=== PATIENT | male | born 1975 | race Caucasian/White ===

== ENCOUNTER 2019-08-13 08:16 | Observation (INO) ==
[2019-08-13] MEDS ORDERED: NITROGLYCERIN 0.4 MG/TAB BTL SL PRN (08:24)
[2019-08-13] MEDS ORDERED: ASPIRIN 81 MG TAB.CHEW PO ONE (08:24)
[2019-08-13] MEDS ORDERED: NITROGLYCERIN IN 5 % DEXTROSE 50 MG/250 ML INFUS..BTL IV PRN (08:26)
--- NOTE | 2019-08-13 08:45 | ERNOTE ---
Chest Pain/Cardiac HPI Chief Complaint: Chest Pain Time Seen by Provider: 08/13/19 08:16 Source: patient Exam Limitations: no limitations Allergies/Adverse Reactions: Allergies hydrocodone Allergy (Severe, Verified 08/13/19 08:40) Shortness of Breath Home Medications: HOME MEDICATIONS Atorvastatin Calcium [Lipitor] 80 mg PO DAILY 08/13/19 [Last Taken Unknown] Clopidogrel Bisulfate [Plavix] 75 mg PO DAILY 08/13/19 [Last Taken Unknown] Furosemide [Lasix] 40 mg PO BID 08/13/19 [Last Taken Unknown] Gabapentin [Neurontin] 100 mg PO TID 08/13/19 [Last Taken Unknown] Isosorbide Mononitrate [Imdur] 120 mg PO DAILY 08/13/19 [Last Taken Unknown] Metoprolol Tartrate [Lopressor] 100 mg PO BID 08/13/19 [Last Taken Unknown] Narrative: Patient states that he has an extensive heart history with four MIs and multiple stents. His care has been in multiple hospitals all over the country, the closets one being [facility]. He was diagnosed with a PE three days ago in [facility] and started on Eliquis, aspirin was stopped. He has daily chest pain but it has worsened since yesterday, got worse during the night and started going to his back. He states that that feeling is similar to prior heart attacks, worse with minimal exertion. He recently moved back into the area, has not established with with a carry in worker yet. Timing: constant, getting worse Severity/Quality: severe, pressure Location: central Chest Pain Radiation: back Activities at Onset: none Modifying Factors - Improves: Present: rest Modifying Factors - Worsens: Present: exercise Nitro Today/Relief: no nitro taken today Aspirin Treatment Today: no aspirin today Associated Symptoms: Present: nausea Prior Chest Pain/Cardiac Workup: Reports: prior chest pain, heart attack, cardiac cath Prior Treatment: Reports: recently seen. Denies: currently on antibiotics Review of Systems - Review of Systems Constitutional: Absent: recent illness ENT: Absent: nose congestion, sore throat Respiratory: Absent: shortness of breath Cardiology: Present: chest pain Gastrointestinal/Abdominal: Present: nausea. Absent: abdominal pain Genitourinary: Present: no symptoms reported Musculoskeletal: Present: back pain Neurological: Absent: headache Medical History (Updated 08/13/19 @ 08:28 by Shanelle Mae MD) CAD (coronary artery disease) Surgical History: Surgical History (Updated 08/13/19 @ 08:40 by Naa Gaming, RN) History of angioplasty History of heart artery stent Family History: Family History (Updated 08/13/19 @ 09:46 by Farzaneh Gaming RN) Father Myocardial infarction Social History: (Last Updated 08/13/19 @ 08:44 by Naa Gaming, RN) Tobacco: Smoking Status: Never smoker Alcohol: alcohol intake: never Substance Use: substance use type: does not use Physical Exam - Physical Exam General Appearance: Present: wd/wn, alert, mild distress, obese Head Exam: Present: normal inspection Respiratory: Present: no respiratory distress, normal breath sounds, no accessory muscle use, chest nontender, lungs clear Cardiovascular/Chest: Present: regular rate, rhythm, no murmur Gastrointestinal/Abdominal: Present: normal bowel sounds, nontender, nondistended, soft Extremity Exam: Present: no edema Neurological Exam: Present: alert, oriented, normal mood/affect Skin Exam: Present: normal color, warm/dry Progress - Results and Orders Patient's Lab Results:: I have reviewed the patient's lab results. - Vital Signs Patient's Vital Signs:: I have reviewed the patient's vital signs. Vital Signs: Vital Signs 08/13/19 08:17 Temperature 36.4 C Pulse Rate 80 Respiratory Rate 14 Blood Pressure 147/94 H O2 Sat by Pulse Oximetry 99 - EKG EKG #1 EKG: NSR, RBBB - incomplete, borderline ST changes V1-3 EKG read: Interp. by me - X-Ray X-Ray #1 X-Ray: chest - cardiomegaly, no acute changes Interpretation: Interp. by me - Progress/Reassessment Chief Complaint: Chest Pain Progress Note-Subjective: 08/13/19 08:27 call to [facility] discussed with Dr Weir (ERP), patient had cath at [facility] on 07/21, stents were clear then , EKG on file similar to EKG today (was faxed) 08/13/19 09:06 no relieve with nitro yet patient states that he never had good pain relieve with nitro 08/13/19 09:31 discussed normal troponin, pain unchanged, will try morphine 08/13/19 09:[address] Spencer,okay to admit for chest pain observation pain better after morphine Departure Clinical Impression: Chest pain Qualifiers: Chest pain type: unspecified Qualified Code(s): R07.9 - Chest pain, unspecified Pulmonary embolism Qualifiers: Pulmonary embolism type: unspecified Chronicity: acute Acute cor pulmonale presence: unspecified Qualified Code(s): I26.99 - Other pulmonary embolism without acute cor pulmonale Coronary artery disease Qualifiers: Coronary Disease-Associated Artery/Lesion type: unspecified vessel or lesion type [place] vs. transplanted heart: [place] heart Associated angina: with unspecified angina Qualified Code(s): I25.119 - Atherosclerotic heart disease of [place] coronary artery with unspecified angina pectoris - Departure Disposition: Still a patient Condition: Stable
[2019-08-13 08:56] LABS: Hematocrit 41.6 % (42.0-52.0); Hemoglobin 13.7 gm/dL (13.5-18.0); Mean Cell Volume 90.2 fl (78-100); Mean Corpuscular Hemoglobin 29.7 pg (27-31); Mean Corpuscular Hgb Conc 32.9 g/dl (32-36); Mean Platelet Volume 8.4 fl (8-11.3); Neutrophil # 4.4 K/mm3 (1.3-6.0); Platelet Count 231 K/mm3 (150-450); Red Blood Count 4.61 M/mm3 (4.7-6.0); Red Cell Distribution Width 13.7 % (11.5-14.0); White Blood Count 6.9 K/mm3 (4.0-10.5)
[2019-08-13 09:03] LABS: Prothrombin Time (Patient) 10.5 Seconds (9.1-10.7)
[2019-08-13] MEDS ORDERED: ONDANSETRON HCL/PF 2 MG/ML VIAL IV ONE ×2 (09:03→17:49)
[2019-08-13 09:04] LABS: INR 1.06 INR (0.92-1.08); Partial Thrombolplastin Time 25.1 Seconds (24-32)
[2019-08-13 09:14] LABS: ALT 24 U/L (19-67); AST 19 U/L (0-48); Albumin * 3.3 gm/dl (3.4-5.0); Alkaline Phosphatase * 76 U/L (50-170); Anion Gap 13.2 mmol/L (6.8-13.8); BUN/Creatinine Ratio 8.5 (9.0-21.6); Bilirubin, Total 0.3 mg/dL (0.0-1.1); Blood Urea Nitrogen 8 mg/dL (6-23); Ca. Corrected For Albumin 8.6 mg/dL (8.4-10.2); Calcium * 8.4 mg/dL (7.9-10.9); Carbon Dioxide 25.8 mmol/L (24-32.6); Chloride 103 mmol/L (97-106); Glucose * 133 mg/dL (70-110); Sodium 138 mmol/L (132-142); Total Protein 7.3 gm/dL (6.2-8.2); Troponin I Less than 0.017 ng/mL (0.00-0.10)
[2019-08-13] MEDS ORDERED: MORPHINE SULFATE 2 MG/ML DISP.SYRIN IV ONE ×2 (09:23→10:44)
--- NOTE | 2019-08-13 12:45 | HP ---
Chief Complaint - Chief Complaint Date of Service: 08/13/19 Time of Service: 12:44 Chief Complaint: chest pain History of Present Illness: Javy Sierra is a 43-year-old white male with extensive cardiac history of myocardial infarctions status post multiple stenting's who was admitted on 08/13/2019 because of chest pain. He describes his chest pain as pressure-like 10/10, radiating to his back and to his shoulder and left upper extremity a ssociated with diaphoresis. In the emergency room his EKG showed sinus rhythm with incomplete right bundle branch block, ST deviation with moderate T wave abnormality consider lateral ischemia. His troponin was normal.. ED physician , Dr. Mendoza, was able to talk to the ED physician, Dr. Weir, and [facility] and he was able to compare his EKG and told her that there were no changes from 3 weeks ago. It so happened that he was just there 3 weeks ago and they did a cardiac catheterization for chest pain and the cardiac stents were clear. He just moved to the area and he has not established with the spotlight operator yet. The patient was started on nitroglycerin drip and given morphine and was admitted for observation. He was also recently admitted at [facility] 3 days ago for pulmonary embolism and is on Eliquis 10 mg PO BID and continued with is plavix.. His aspirin was stopped then. He said that this is not the same as the pain he had with his pulmonary embolism. He denies any increase in pain with coughing or deep breathing. Medical History (Updated 08/13/19 @ 13:33 by Leigh Ann Spencer MD) CAD (coronary artery disease) Myocardial infarct Pulmonary emboli Surgical History: Surgical History (Updated 08/13/19 @ 08:40 by Naa Gaming RN) History of angioplasty History of heart artery stent Family History: Family History (Updated 08/13/19 @ 09:46 by Farzaneh Gaming RN) Father Myocardial infarction Social History: (Last Reviewed 08/13/19 @ 11:35 by Cari Reich RN) Tobacco: Smoking Status: Never smoker Alcohol: alcohol intake: never Substance Use: substance use type: does not use Review Of Systems (GEN) - Review of Systems Generalized/Overall Review: Absent: Weakness, Fever EENTM: Absent: Blurred Vision Respiratory: Absent: Cough, Shortness of Breath, Orthopnea Cardiac: Present: Chest Pain. Absent: Edema, Palpitations Abdominal: Absent: Nausea, Vomiting Genitourinary: Absent: Urgency, Frequency Musculoskeletal: Present: Back Pain. Absent: Joint Pain Neurological: Absent: Headache Skin: Absent: Lumps, Rash Misc: All systems neg except as marked Immunizations: IMMUNIZATION HX Immunizations Up to Date Yes History of Influenza Vaccine No Hx Pneumococcal Vaccination No Allergies/Adverse Reactions: Allergies Allergy/AdvReac Type Severity Reaction Status Date / Time hydrocodone Allergy Severe Shortness Verified 08/13/19 08:40 of Breath Home Medications: HOME MEDICATIONS Apixaban [Eliquis] 10 mg PO BID 08/13/19 [Last Taken 08/12/19] Atorvastatin Calcium [Lipitor] 80 mg PO DAILY 08/13/19 [Last Taken Unknown] Clopidogrel Bisulfate [Plavix] 75 mg PO DAILY 08/13/19 [Last Taken Unknown] Furosemide [Lasix] 40 mg PO BID 08/13/19 [Last Taken 08/13/19] Gabapentin [Neurontin] 300 mg PO TID 08/13/19 [Last Taken 08/13/19] Isosorbide Mononitrate [Imdur] 120 mg PO DAILY 08/13/19 [Last Taken 08/13/19] Metoprolol Tartrate [Lopressor] 100 mg PO BID 08/13/19 [Last Taken 08/13/19] Exam - Exam Vital Signs: Vital Signs - Last Taken Temp 36.6 C 08/13/19 11:09 Pulse 82 08/13/19 12:00 Resp 14 08/13/19 12:00 BP 129/83 08/13/19 12:00 Pulse Ox 95 08/13/19 12:00 Constitutional: Present: Alert, Oriented x3, Cooperative ENT Exam: Present: hearing grossly normal Eye Exam: bilateral eye: normal inspection, PERRL, EOMI Neck: Present: supple. Absent: lymphadenopathy (R), lymphadenopathy (L) Respiratory: Present: normal breath sounds, No rales, No wheezing Cardiovascular/Chest: Present: regular rate, rhythm, no JVD, no murmur Abdomen: Present: Normal bowel sounds, soft, nontender, nondistended Extremity: Present: no calf tenderness, pedal edema Diagnostic Studies: Abnormal Lab Results 08/13/19 08/13/19 Range/Units 08:50 08:50 RBC 4.61 L (4.7-6.0) M/mm3 Hct 41.6 L (42.0-52.0) % BUN/Creatinine Ratio 8.5 L (9.0-21.6) Random Glucose 133 H (70-110) mg/dL Albumin 3.3 L (3.4-5.0) gm/dl Laboratory Results WBC 6.9 K/mm3 (4.0-10.5) 08/13/19 08:50 RBC 4.61 M/mm3 (4.7-6.0) L 08/13/19 08:50 Hgb 13.7 gm/dL (13.5-18.0) 08/13/19 08:50 Hct 41.6 % (42.0-52.0) L 08/13/19 08:50 MCV 90.2 fl (78-100) 08/13/19 08:50 MCH 29.7 pg (27-31) 08/13/19 08:50 MCHC 32.9 g/dl (32-36) 08/13/19 08:50 RDW 13.7 % (11.5-14.0) 08/13/19 08:50 Plt Count 231 K/mm3 (150-450) 08/13/19 08:50 MPV 8.4 fl (8-11.3) 08/13/19 08:50 Immature Gran % (Auto) 0.40 % (0.001-0.429) 08/13/19 08:50 Immature Gran # (Auto) 0.03 K/mm3 (0.000-0.0310) 08/13/19 08:50 64.0 % (42-75.0) 08/13/19 08:50 22.8 % (20-51) 08/13/19 08:50 8.8 % (0.0-9) 08/13/19 08:50 3.0 % (0.0-3.0) 08/13/19 08:50 1.0 % (0.0-1.0) 08/13/19 08:50 Nucleated RBC % 0.0 k/mm3 (0-1) 08/13/19 08:50 4.4 K/mm3 (1.3-6.0) 08/13/19 08:50 1.58 k/mm3 (1.5-3.5) 08/13/19 08:50 0.6 k/mm3 (0.0-1.0) 08/13/19 08:50 0.2 k/mm3 (0.0-0.7) 08/13/19 08:50 Absolute Basophils 0.1 k/mm3 (0.0-0.1) 08/13/19 08:50 PT 10.5 Seconds (9.1-10.7) 08/13/19 08:40 INR (Anticoag Therapy) 1.06 INR (0.92-1.08) 08/13/19 08:40 PTT ([place]) 25.1 Seconds (24-32) 08/13/19 08:40 Sodium 138 mmol/L (132-142) 08/13/19 08:50 139 mmol/L (130-142) 08/13/19 08:50 Potassium 4.0 mmol/L (3.4-4.6) 08/13/19 08:50 Chloride 103 mmol/L (97-106) 08/13/19 08:50 Carbon Dioxide 25.8 mmol/L (24-32.6) 08/13/19 08:50 13.2 mmol/L (6.8-13.8) 08/13/19 08:50 BUN 8 mg/dL (6-23) 08/13/19 08:50 0.94 mg/dL (0.4-1.4) 08/13/19 08:50 Est GFR (Non-Af Amer) 93 mL/min (60-130) 08/13/19 08:50 8.5 (9.0-21.6) L 08/13/19 08:50 133 mg/dL (70-110) H 08/13/19 08:50 Calcium 8.4 mg/dL (7.9-10.9) 08/13/19 08:50 Calcium Adj for Albumin 8.6 mg/dL (8.4-10.2) 08/13/19 08:50 0.3 mg/dL (0.0-1.1) 08/13/19 08:50 AST 19 U/L (0-48) 08/13/19 08:50 ALT 24 U/L (19-67) 08/13/19 08:50 76 U/L (50-170) 08/13/19 08:50 Less than 0.017 ng/mL (0.00-0.10) 08/13/19 08:50 7.3 gm/dL (6.2-8.2) 08/13/19 08:50 3.3 gm/dl (3.4-5.0) L 08/13/19 08:50 Assessment/Plan - Narrative Narrative: Javy Portillo is a 43-year-old white male with extensive history of myocardial infarctions with multiple stents in the past, coronary artery disease, pulmonary embolism, who was admitted for observation for chest pain. The patient said that this is always happened to him in the past that he would be ruled out for acute myocardial infarction but then 2 to 7 days later would end up in another hospital needing stenting's. He recently get a cardiac cath 3 weeks ago in [facility] and was told that his stents were clear. If patient continues to have chest pain without relief from nitroglycerin and morphine we will transfer patient for unstable angina. - Assessment/Plan (1) Chest pain Problem: Acute Qualifiers: Chest pain type: unspecified Qualified Code(s): R07.9 - Chest pain, unspecified (2) Pulmonary embolism Problem: Acute Qualifiers: Pulmonary embolism type: unspecified Chronicity: acute Acute cor pulmonale presence: unspecified Qualified Code(s): I26.99 - Other pulmonary embolism without acute cor pulmonale (3) Coronary artery disease Problem: Chronic Qualifiers: Coronary Disease-Associated Artery/Lesion type: unspecified vessel or lesion type [place] vs. transplanted heart: [place] heart Associated angina: with unspecified angina Qualified Code(s): I25.119 - Atherosclerotic heart disease of [place] coronary artery with unspecified angina pectoris
[2019-08-13] MEDS ORDERED: MORPHINE SULFATE 10 MG/ML SYRG IV ONE (13:40)
[2019-08-13] MEDS: APIXABAN 5 MG TABLET PO SCH ×2 (14:26→20:08)
[2019-08-13] MEDS ORDERED: ROSUVASTATIN CALCIUM 20 MG TABLET PO SCH (15:00)
--- NOTE | 2019-08-13 16:43 | DS ---
Transfer Discharge Summary - Diagnosis(s)/Problems (1) Chest pain Problem: Acute (2) Pulmonary embolism Problem: Acute (3) Coronary artery disease Problem: Chronic - Course Description of Stay: Javy Sierra is a 43-year-old white male with extensive cardiac history of myocardial infarctions status post multiple stenting's ( 4 AMI's, 10 stentings since 2008) who was admitted on 08/13/2019 because of chest pain. He describes his chest pain as pressure-like 10/10, radiating to his back and to his shoulder and left upper extremity associated with diaphoresis. In the emergency room his EKG showed sinus rhythm with incomplete right bundle branch block, ST deviation with moderate T wave abnormality consider lateral ischemia. His troponin was normal.. ED physician , Dr. Mendoza, was able to talk to the ED physician, Dr. Weir, at [facility] and he was able to compare his EKG and told her that there were no changes from 3 weeks ago. 3 weeks ago they did a cardiac catheterization for chest pain and the cardiac stents were clear. He just moved to the area and he has not established with the transfer driver yet. The patient was started on nitroglycerin drip and given morphine and was admitted for observation. He was also recently admitted at [facility] [place], [place], 3 days ago for pulmonary embolism, right lower lobe. He is on Eliquis 5 mg PO BID and was continued with is plavix.. His aspirin was stopped then. He said that this is not the same as the pain he had with his pulmonary embolism. He denies any increase in pain with coughing or deep breathing. He continued to have chest pain although improved from 10 over 10 to 6/10 with morphine. His second set of cardiac enzyme was in within normal limits however his EKG shows sinus rhythm, incomplete right bundle branch block, possible lateral myocardial infarction as his Q waves have become more significant. His prior EKG showed possible lateral myocardial ischemia. Since he is still having chest pain which he says is now up again to 10/10 with a change in his EKG (deeper Q waves in the lateral reading now as lateral infarction) even though his troponin is normal I am recommending him to be transferred to a higher institution for Unstable Angina. Will defer from starting Heparin drip as he just took his Eliquis around 1 p.m. and his Plavix this morning at home. He also got ASA in the ER this morning. I talked to Dr. Berg, the transfer driver and Dr. Rivera, ERP in [facility] in [place] and they are accepting the patient. Procedures Performed: none - Results and Findings Results and Findings: Laboratory Results - last 24 hr 08/13/19 08/13/19 08/13/19 08:40 08:50 08:50 WBC 6.9 RBC 4.61 L Hgb 13.7 Hct 41.6 L MCV 90.2 MCH 29.7 MCHC 32.9 RDW 13.7 Plt Count 231 MPV 8.4 Immature Gran % (Auto) 0.40 Immature Gran # (Auto) 0.03 Neutrophils % 64.0 Lymphocytes % 22.8 Monocytes % 8.8 Eosinophils % 3.0 Basophils % 1.0 Nucleated RBC % 0.0 Neutrophils # 4.4 Lymphocytes # 1.58 Monocytes # 0.6 Eosinophils # 0.2 Absolute Basophils 0.1 PT 10.5 INR (Anticoag Therapy) 1.06 PTT ([place]olo) 25.1 Sodium 138 Plasma Sodium 139 Potassium 4.0 Chloride 103 Carbon Dioxide 25.8 Anion Gap 13.2 BUN 8 Creatinine 0.94 Est GFR (Non-Af Amer) 93 BUN/Creatinine Ratio 8.5 L Random Glucose 133 H Calcium 8.4 Calcium Adj for Albumin 8.6 Total Bilirubin 0.3 AST 19 ALT 24 Alkaline Phosphatase 76 Troponin I Less than 0.017 Total Protein 7.3 Albumin 3.3 L 08/13/19 14:46 WBC RBC Hgb Hct MCV MCH MCHC RDW Plt Count MPV Immature Gran % (Auto) Immature Gran # (Auto) Neutrophils % Lymphocytes % Monocytes % Eosinophils % Basophils % Nucleated RBC % Neutrophils # Lymphocytes # Monocytes # Eosinophils # Absolute Basophils PT INR (Anticoag Therapy) PTT ([place]) Sodium Plasma Sodium Potassium Chloride Carbon Dioxide Anion Gap BUN Creatinine Est GFR (Non-Af Amer) BUN/Creatinine Ratio Random Glucose Calcium Calcium Adj for Albumin Total Bilirubin AST ALT Alkaline Phosphatase Troponin I Less than 0.017 Total Protein Albumin - Medications Medications: Active Medications Apixaban (Eliquis) 5 mg PO BID KEELY Stop: 09/12/19 14:01 Last Admin: 08/13/19 14:26 Dose: 5 mg Documented by: Nitroglycerin/Dextrose (Nitroglycerin 50 Mg/D5w 250ml) 50 mg in 250 mls @ 1.5 mls/hr IV TITR PRN; Protocol PRN Reason: CHEST PAIN Stop: 09/12/19 08:27 Last Titration: 08/13/19 13:30 Dose: 50 mcg/min, 15 mls/hr Documented by: Nitroglycerin (Nitrostat) 0.4 mg SL Q5MIN PRN PRN Reason: Chest Pain Last Admin: 08/13/19 08:32 Dose: 0.4 mg Documented by: Rosuvastatin Calcium (Crestor) 40 mg PO DAILY KEELY Stop: 09/12/19 15:01 Last Admin: 08/13/19 14:26 Dose: 40 mg Documented by: Discontinued Medications Aspirin (Aspirin Chewable) 324 mg PO ONCE ONE Stop: 08/13/19 08:25 Last Admin: 08/13/19 08:27 Dose: 324 mg Documented by: Morphine Sulfate (Morphine Sulfate) 2 mg IV ONCE ONE Stop: 08/13/19 09:24 Last Admin: 08/13/19 09:26 Dose: 2 mg Documented by: Morphine Sulfate (Morphine Sulfate) 2 mg IV ONCE ONE Stop: 08/13/19 10:45 Last Admin: 08/13/19 10:49 Dose: 2 mg Documented by: Morphine Sulfate (Morphine Sulfate) 5 mg IV ONCE ONE Stop: 08/13/19 13:41 Last Admin: 08/13/19 13:37 Dose: 5 mg Documented by: Ondansetron HCl (Zofran) 4 mg IV ONCE ONE Stop: 08/13/19 09:04 Last Admin: 08/13/19 09:04 Dose: 4 mg Documented by: - Disposition Disposition: Short Term Hospital Inpatient Condition: Stable Discharge Date: 08/13/19 Discharge Time: 19:15
--- NOTE | 2019-08-13 16:51 | PN ---
Luke Note - Interim Date: 08/13/19 Time: 16:49 Narrative: 08/13/19 16:49 Earlier in the afternoon I told the patient I was going to transfer him to a place where they can do cardiac intervention because of his continuance of pain despite nitroglycerin drip and morphine. He refused and wanted to stay overnight to rule out infarction and tomorrow he preferred going to [facility] where he says cardiac service is excellent. I told him then I will wait for his second set of troponin and EKG and go from there.
[2019-08-13] MEDS ORDERED: GABAPENTIN 300 MG CAPSULE PO SCH (17:00)
[2019-08-13] MEDS ORDERED: MORPHINE SULFATE 4 MG/ML SYRG IV ONE ×2 (17:06→20:17)
[2019-08-13] MEDS ORDERED: METOPROLOL TARTRATE 1 MG/ML AMPUL IV ONE (17:07)
[2019-08-13] MEDS ORDERED: FUROSEMIDE 40 MG TABLET PO SCH (21:00)
[2019-08-13] MEDS ORDERED: METOPROLOL TARTRATE 100 MG TABLET PO SCH (21:00)
[2019-08-13 21:20] VITALS: BP 126/72
[2019-08-14] MEDS ORDERED: CLOPIDOGREL BISULFATE 75 MG TABLET PO SCH (09:00)
== END 2019-08-13 21:06 | disposition short-term general hospital (02) ==
LOC: ER 08:16 → INTOOBSV 10:07 → SCU 10:07
PROVIDERS: ADMIT Internal Medicine; ATTEND Internal Medicine
DX: I26.99 Other pulmonary embolism without acute cor pulmonale; I25.10 Atherosclerotic heart disease of native coronary artery without angina pectoris; R07.9 Chest pain, unspecified
CPT/HCPCS: 36415; 71010; 71045; 80053; 84484; 85025; 85610; 85730; 93005; 96365; 96366; 99285; G0378; J2405